=== PATIENT | female | born 1980 | race Caucasian/White ===

== ENCOUNTER → 2016-11-10 | Outpatient (CLI) | payer OTHER ==
[~2016-11-10] MED LIST: CELEXA40 MG PO; COLACE100 MG PO; GLYNASE (MICRO1.5 MG PO; LEVOTHROID (S137 MCG PO; LEVOTHROID (S150 MCG PO; LEVOTHROID(SY175 MCG PO; LEVOTHROID(SYN75 MCG PO; MOTRIN800 MG PO; PERCOCET 5-3251 EACH PO; PRENATAL 1+1)(P1 TAB PO; SURFAK240 MG PO; TYLENOL EXTRA500 MG PO
== END | disposition disaster alternative care site (69) ==
LOC: GRAD 11-08 15:00
DX: R51 Headache (principal)